=== PATIENT | female | born 1940 | race Caucasian/White ===

== ENCOUNTER 2016-09-21 11:03 | Emergency (ER) | payer MEDICARE, OTHER ==
--- NOTE | ~2016-09-21 | ER ---
PATIENT'S NAME: JAYDEN BOYLE [facility] AGE: 76 Y [address] ROOM: [place] [address] LOCATION: [facility] ADMIT DATE: 09/21/2016 ER/Outpatient Report DISCHARGE DATE: 09/21/2016 FAMILY PHYSICIAN: Madhu Encarnacion MD ATTENDING PHYSICIAN: Indio Quinonez CHIEF COMPLAINT: Abdominal pain and back pain. HISTORY OF PRESENT ILLNESS: Approximately 3 hours prior to arrival, the patient had severe abdominal and back pain that she stated was in her hips. She has a history of chronic back pain, is on multiple medications for same. She also is on methadone as well as other medications for pain including oxycodone or OxyContin, her can not recall. The patient has a history of abdominal issues as well as cardiac history. She states that the pain is just a dull ache in the abdomen, and it is kind of low. The patient is awake and alert. She is interactive and appropriate per the . She was having some trouble walking secondary to pain. She denies any other major issues. PAST MEDICAL HISTORY: Documented on the record and reviewed by me. SOCIAL HISTORY: Documented on the record and reviewed by me. MEDICATIONS: Documented on the record and reviewed by me. ALLERGIES: DOCUMENTED IN THE RECORD AND REVIEWED BY ME. REVIEW OF SYSTEMS: All systems reviewed and negative except as noted in the HPI. PHYSICAL EXAMINATION: VITAL SIGNS: On arrival, blood pressure 90/54, pulse 82, respiratory rate is 18, temp 96.0, SpO2 is 92% on room air. Pain 6/10. GENERAL: A female appearing older than stated age, lying on the exam table, in obvious discomfort but no distress. She has no specific complaints but is moaning. NEURO: The patient is awake. She is interactive. She opens her eyes to command. GCS is 14. No speech deficits. No asymmetry on exam. No weakness in the lower extremities. Pulses are 2+ throughout. She has no focal deficits on exam. PATIENT'S NAME: JAYDEN BOYLE [facility] AGE: 76 Y [address] ROOM: [place] [address] LOCATION: [facility] ADMIT DATE: 09/21/2016 ER/Outpatient Report DISCHARGE DATE: 09/21/2016 FAMILY PHYSICIAN: Madhu Encarnacion MD ATTENDING PHYSICIAN: Indio QuinonezENT: Normocephalic, atraumatic. The eyes are PERRL. The oropharynx is slightly dry and tacky. No exudates. No erythema. NECK: Supple. Trachea is midline. CHEST: Heart is regular rate and rhythm with no appreciated murmurs. LUNGS: Grossly clear to auscultation bilateral with no rhonchi, wheezes, or rales. ABDOMEN: Notable for tenderness with initial palpation, that relieves significantly with subsequent exam. There is no rebound or guarding. No masses appreciated. The abdomen is slightly full. BACK: Nontender to palpation throughout. EXTREMITIES: Warm and well perfused. Pulses are present in the PT and DP bilateral. Radial pulses 2+. SKIN: The turgor is slightly decreased. No other rashes. LABORATORY DATA AND X-RAYS: EKG reveals sinus rhythm, ventricular rate of approximately 75 with otherwise normal intervals other than slightly prolonged QTc. No ischemia appreciated on the EKG. Normal R-wave progression. Comparison study not immediately available. Blood gas; pH is 7.33, pCO2 is 37, pO2 is 79 on room air, bicarb is 19.5, CO2 content is 21. Lactate is 4.3. CRP is 8.12. WBC is 11.9, hemoglobin is 8.0, platelets of 234, baseline hemoglobin appears to be normal. Urinalysis with no leukocytes, no nitrites, 25 blood, not consistent with infection on micro secondary to low samples. TSH 6.47, free T4 is 1.3. Sodium 138, potassium 3.1, chloride 104, CO2 is 18, BUN is 31, creatinine is 1.7, GFR is 29. LFTs are grossly unremarkable. Amylase 62, lipase 159, CK-MB is 3.2, troponin I is 0.175. Influenza A and B are negative. Procalcitonin is below threshold. INR is 1.0. CT of chest, abdomen, and pelvis with contrast is notable for what appears to be leaking retroperitoneal abdominal aortic aneurysm. No clear thoracic components per my read, though there is one area of concern just above the diaphragm. Radiology does not see any thoracic components of dissection or aneurysmal involvement. IMPRESSION: 1. Ruptured abdominal aortic aneurysm, retroperitoneal, contained with active bleeding. 2. Hyperthyroidism. 3. Hypertension. 4. Abdominal pain. 5. Troponin elevation. 6. Acute renal failure. 7. Blood loss anemia. PATIENT'S NAME: JAYDEN BOYLE [facility] AGE: 76 Y [address] ROOM: [place] [address] LOCATION: [facility] ADMIT DATE: 09/21/2016 ER/Outpatient Report DISCHARGE DATE: 09/21/2016 FAMILY PHYSICIAN: Madhu Encarnacion MD ATTENDING PHYSICIAN: Indio Quinonez EMERGENCY DEPARTMENT COURSE: The patient was evaluated as above. Based on her history and physical exam, I had some concern about intraabdominal pathology. She was unstable, and her abdominal pain was not particularly consistent with her presentation. This raised concern for possible ischemic bowel. Based on her vascular history, that was my chief concern. Upon receipt of her labs, I was able to confirm that the patient did have renal failure and a troponin elevation. She has no chest pain or shortness of breath associated with her current presentation. She does appear to be stable. Her blood pressure is in fact began to trend up in the emergency department. Her only complaint was that she had to go to the bathroom frequently. She remained otherwise stable, and in fact was able to rest comfortably in the emergency department. We did pretreat her with 1 L of saline and 1 L of D5W with sodium bicarb prior to her CT scan. She appeared stable. Her CT scan is as noted above and is diagnostic of ruptured abdominal aortic aneurysm. This explains her elevated lactate and azotemia. I am not sure how it explains her troponin elevation. She was started immediately on a nitroglycerin drip as her blood pressure had been trending up. We were able to exchange that for esmolol as she began to have reflex tachycardia with the nitroglycerin. We will target heart rate 50-60 and blood pressure systolic 90-110. The case was discussed with Dr. Medina, vascular surgeon, who was kind enough to take our call despite the fact that he was not the on-call vascular surgeon. He did review the case and felt that it was not appropriate for him. I did discuss the case with Dr. Duncan, vascular surgeon, at the [facility], who based on my description of the presentation felt that it would be most appropriate to go to the [facility] with a concern for possible thoracic involvement. At that point in time, I contacted Dr. Elizabeth, vascular surgeon at [facility], who accepted the patient for transfer to the [facility] ED. I requested they call if further contact with an ER provider was needed. She remained stable, and upon leaving our emergency department with nitroglycerin and esmolol assistance, the patient had vital signs with blood pressure of 106/63, and a pulse of 84, respiratory rate was 18, temp 97.0, SpO2 is 95% on room air. Her GCS was 15. Her pain was adequately controlled. I did send the patient with 2 units of blood in case of decompensation. CRITICAL CARE: 41 minutes of critical care time were spent on this patient for a ruptured abdominal aortic aneurysm with high risk of decompensation as well as acute titration of blood pressure and heart rate medications with nitroglycerin and esmolol. Care is warranted for the high risk of rupture and loss of life. She will need to be likely operated on. I ordered and reviewed her labs and EKG. I ordered her x-ray with contrast as I was concerned about her presentation. I also consulted several providers, all vascular surgeons, and ultimately transferred this patient to the [facility] for definitive evaluation and treatment. All questions were answered to the best PATIENT'S NAME: JAYDEN BOYLE [facility] AGE: 76 Y [address] ROOM: [place] [address] LOCATION: [facility] ADMIT DATE: 09/21/2016 ER/Outpatient Report DISCHARGE DATE: 09/21/2016 FAMILY PHYSICIAN: Madhu Encarnacion MD ATTENDING PHYSICIAN: Indio Quinonez of my ability for the patient and her prior to transfer the patient. MD BO MCGEE/akira /[id number] d: 09/21/169 t: 09/23/16 0835, OUTPATIENT REPORT
[2016-09-21 11:50] LABS: BASOPHIL % 0.3 %; EOSINOPHIL # 0.2 K/uL (0.0-0.5); HEMATOCRIT 25.8 % (33.0-46.0); IMMATURE GRANULOCYTE # 0.3 K/uL (0.0-0.3); IMMATURE GRANULOCYTE % 2.1 %; LYMPHOCYTE # 3.4 K/uL (0.8-4.0); LYMPHOCYTE % 28.3 %; MCH 29.7 pg (27.0-34.0); MCV 95.9 fl (83.0-98.0); MONOCYTE # 0.4 K/uL (0.0-1.0); MONOCYTE % 3.1 %; NEUTROPHIL # (ANC) 7.7 K/uL (1.8-7.8); NEUTROPHIL % 64.2 %; NRBC % 0 /100WBC (0-0.00); PLATELET COUNT 234 K/uL (150-450); RBC 2.69 M/uL (3.50-5.50); RDW-CV 16.5 % (11.9-14.6); WBC 11.9 K/uL (4.0-11.0)
[2016-09-21 12:05] LABS: PROTIME 9.9 SECONDS (9.6-11.1); PTT 21 SECONDS (25-32)
[2016-09-21 12:08] LABS: BILIRUBIN URINE NEGATIVE (NEGATIVE); BLOOD URINE 25 /UL (NEGATIVE); GLUCOSE URINE NEGATIVE (NEGATIVE); KETONE URINE NEGATIVE (NEGATIVE); LEUKOCYTES URINE NEGATIVE /UL (NEGATIVE); NITRITE URINE NEGATIVE (NEGATIVE); PROTEIN URINE 15 mg/dL (NEGATIVE); SPEC GRAVITY URINE 1.015 (1.003-1.035); UROBILINOGEN URINE NORMAL (NORMAL)
[2016-09-21 12:09] LABS: BICARBONATE 19.5 mmol/L (18.0-23.0); LACTATE 4.3 mEq/L (0.50-1.60); PCO2 37 mmHg (35-45); PO2 79 mmHg (80-90)
[2016-09-21 12:09] LABS: ALBUMIN 2.9 gm/dL (3.5-5.0); ANION GAP 19.1 (10.0-19.0); CALCIUM 8.1 mg/dL (8.5-10.5); CREATININE 1.7 mg/dL (0.5-1.1); POTASSIUM 3.1 mMol/L (3.7-5.1); TOTAL BILIRUBIN 0.6 mg/dL (0.0-1.5); TOTAL PROTEIN 6.5 g/dL (6.0-8.4)
[2016-09-21 12:10] LABS: COLOR URINE STRAW (YELLOW); TURBIDITY URINE 1+ (CLEAR)
[2016-09-21 12:12] LABS: BACTERIA URINE RARE (NEGATIVE); EPITHELIAL URINE 0-2 #/HPF (NEGATIVE); RBC URINE RARE #/HPF (NEGATIVE); WBC URINE RARE #/HPF (NEGATIVE)
[2016-09-21 12:13] LABS: WBC CLUMPS URINE RARE (NEGATIVE)
== END 2016-09-21 15:20 | disposition disaster alternative care site (69) ==
LOC: GMED 11:03
PROVIDERS: Emergency Medicine
DX: I71.3 Abdominal aortic aneurysm, ruptured (principal); D50.0 Iron deficiency anemia secondary to blood loss (chronic); E03.9 Hypothyroidism, unspecified; I10 Essential (primary) hypertension; N17.9 Acute kidney failure, unspecified; R79.89 Other specified abnormal findings of blood chemistry
CPT/HCPCS: J7030; J7060; Q9967

== ENCOUNTER → 2016-09-21 | Outpatient (CLI) | payer MEDICARE, OTHER | END | disposition disaster alternative care site (69) | LOC: GAIR 15:28 → GAMB 15:28 | DX: M54.9 Dorsalgia, unspecified (principal); M25.552 Pain in left hip; M19.90 Unspecified osteoarthritis, unspecified site; I10 Essential (primary) hypertension; E78.5 Hyperlipidemia, unspecified; I71.4 Abdominal aortic aneurysm, without rupture; Z87.891 Personal history of nicotine dependence; Z79.82 Long term (current) use of aspirin; Z79.899 Other long term (current) drug therapy | CPT/HCPCS: A0422; A0431; A0436; J2405; J3010 ==